=== PATIENT | female | born 1990 | race Caucasian/White ===

== ENCOUNTER 2019-04-03 20:14 | Emergency (ER) | payer MEDICAID ==
[~2019-04-03] VITALS: Ht 157.5 cm; Wt 125.2 kg
[2019-04-03 20:17] VITALS: BP 138/91
--- NOTE | 2019-04-03 20:26 | NUR ---
PT AMBULATED TO BED #2
--- NOTE | 2019-04-03 20:30 | NUR ---
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 PT AAOX4. PT NOTED WITH NON PRODUCTIVE COUGH. LUNG SOUNDS CLEAR A/P BILAT. RESPIRATIONS ARE EVEN AND UNLABORED. O2SAT @ 98% ON RA. PT STATES NECK PAIN IS PREVOKED MORE BY COUGHING AND SWALLOWING. AFEBRILE. DENIES N/V/D. PT LEADERSHIP DEVELOPMENT INSTRUCTOR AT BEDSIDE. PT RESTING IN BED EYES OPEN. BED LOCKED AND IN LOWEST POSITION. MED HX: ASTHMA ALLERGIES: NONE.
--- NOTE | 2019-04-03 20:58 | NUR ---
PT KNOCK OUT HAND CHAUNCEY PECK LEFT CONTACT INFORMATION AND STTED TO CALL HER TO COUNT TEAM MEMBER THE PT UPON DISCHARGE. CONTACT INFORMATION: [phone].
--- NOTE | 2019-04-03 21:30 | NUR ---
PT HAS C/O [address] PIPER MADE AWARE AND GAVE NEW ORDERS TO GIVE MOTRIN AND LIDOCANE FOR THROAT PAIN.
[2019-04-03] MEDS ORDERED: LIDOCAINE VISCOUS 2% 20 ML UDC PO ONE (21:35)
[2019-04-03] MEDS ORDERED: IBUPROFEN 600 MG TAB PO ONE (21:35)
--- NOTE | 2019-04-03 22:03 | NUR ---
PT RESTING IN BEDEYES OPEN, RESPIRATIONS ARE EVEN AND UNLABORED. SKIN IS WARM AND DRY TO TOUCH. PT AAO X 4. BED LOCKED AND IN LOWEST POSITION. WILL CONTINUE TO MONITOR.
[2019-04-03 22:15] VITALS: BP 128/89
--- NOTE | 2019-04-03 22:15 | NUR ---
Patient discharged with v/s stable. Written and verbal after care instructions given and explained. Patient alert, oriented and verbalized understanding of instructions. Ambulatory with steady gait. All questions addressed prior to discharge. ID band removed. Patient advised to follow up with PMD. Rx of IBUPROFEN, CEPACOL given. Patient educated on indication of medication including possible reaction and side effects. Opportunity to ask questions provided and answered.
== END 2019-04-03 22:15 | disposition home or self-care (01) ==
LOC: MED 20:14
DX: J02.9 Acute pharyngitis, unspecified (principal); J45.909 Unspecified asthma, uncomplicated
CPT/HCPCS: 99283

== ENCOUNTER 2019-07-13 09:24 | Emergency (ER) | payer MEDICAID ==
[~2019-07-13] VITALS: Ht 157.5 cm; Wt 113.4 kg
[2019-07-13 09:34] VITALS: BP 139/79
--- NOTE | 2019-07-13 09:50 | NUR ---
Dr. Perez is evaluating the patient at bedside.
--- NOTE | 2019-07-13 09:54 | NUR ---
28 YO FEMALE CO FEET SWELLING AND PAIN X1W. PT HAS SWELLING AND PAIN AT THE HIP. NO WARMTH NOTED ON BLE. PT IS ABLE TO WALK WITH A STEADY GAIT. PT HAS MED HX OF ASTHMA AND SCHITZO. PT IS A TOBACCO SMOKER. MEDS: BENZOTROPINE, ZYPREXA, DEPAKOTE, SEROQUEL, RISPERDAL
--- NOTE | 2019-07-13 10:05 | NUR ---
US AT BEDSIDE
[2019-07-13 10:35] LABS: BASOPHILS % (AUTO) 0.5 % (0.0-2.0); EOSINOPHILS # (AUTO) 0.1 K/uL (0-0.4); HEMATOCRIT 36.5 % (36-48); HEMOGLOBIN 12.2 g/dL (12.0-16.0); LYMPHOCYTES # (AUTO) 2.3 K/uL (2.5-16.5); LYMPHOCYTES % (AUTO) 25.4 % (20.5-51.1); MEAN CORPUSCULAR HEMOGLOBIN 30 pg (27-31); MEAN CORPUSCULAR HGB CONC 34 g/dL (33-37); MEAN CORPUSCULAR VOLUME 89.8 fL (80-94); MONOCYTES # (AUTO) 0.8 K/uL (0.8-1.0); NEUTROPHILS # (AUTO) 5.7 K/uL (1.8-7.7); NEUTROPHILS % (AUTO) 64.1 % (42.2-75.2); PLATELET COUNT (AUTO) 244 K/uL (140-450); RED BLOOD CELL COUNT(AUTO) 4.07 MIL/uL (4.20-5.40); RED CELL DISTRIBUTION WIDTH 14.7 % (11.6-13.7); WHITE BLOOD COUNT (AUTO) 8.9 K/uL (4.8-10.8)
[2019-07-13 10:42] LABS: ANION GAP 13.5 (8-16); CARBON DIOXIDE 24.2 mmol/L (21-32); CREATININE 0.8 mg/dL (0.6-1.3); POTASSIUM 3.7 mmol/L (3.5-5.1)
[2019-07-13 11:26] VITALS: BP 139/79
--- NOTE | 2019-07-13 11:26 | NUR ---
Patient discharged with v/s stable. Written and verbal after care instructions given and explained. Patient verbalized understanding. Ambulatory with steady gait. All questions addressed prior to discharge. Advised to follow up with PMD.
== END 2019-07-13 11:26 | disposition home or self-care (01) ==
LOC: MED 09:24
DX: R22.43 Localized swelling, mass and lump, lower limb, bilateral (principal); J45.909 Unspecified asthma, uncomplicated; F20.9 Schizophrenia, unspecified; F17.290 Nicotine dependence, other tobacco product, uncomplicated
CPT/HCPCS: 36415; 80048; 85025; 93970; 99284; Q0092

== ENCOUNTER 2019-12-19 16:58 | Emergency (ER) | payer MEDICAID ==
[~2019-12-19] VITALS: Ht 157.5 cm; Wt 136.8 kg
[2019-12-19 17:01] VITALS: BP 145/92
--- NOTE | 2019-12-19 17:19 | NUR ---
BIB SELF FROM [facility] C/O COUGH X TODAY & LEFT UPPER &LOWER TEETH & GUM PAIN X 2 DAYS.PT AOX4 , AFIBRILE , AMBULATORY WITH STEADY GAIT , TENDER LEFT UPPER CHEEK , SCE , ROUND SOFT ABDOMEN. MED HX: SCHIZOPHRENIA, ASTHMA
--- NOTE | 2019-12-19 17:28 | NUR ---
amari jett at bedside evaluating pt.
[2019-12-19] MEDS ORDERED: KETOROLAC 30 MG/ML VIAL IM ONE (17:35)
[2019-12-19 17:43] VITALS: BP 145/92
--- NOTE | 2019-12-19 17:45 | NUR ---
spoke to board and care lady gave report , pt will be pick by her.
--- NOTE | 2019-12-19 18:10 | NUR ---
Patient discharged with v/s stable. Written and verbal after care instructions given and explained regarding dental pain . Patient alert, oriented and verbalized understanding of instructions. Ambulatory with to [facility]. All questions addressed prior to discharge. ID band removed. Patient advised to follow up with PMD. Rx of augmentin and ibuprofen given. Patient educated on indication of medication including possible reaction and side effects. Opportunity to ask questions provided and answered.Board and care staff chicken picker the patient.
== END 2019-12-19 18:10 | disposition home or self-care (01) ==
LOC: MED 16:58
DX: K08.89 Other specified disorders of teeth and supporting structures (principal); K02.9 Dental caries, unspecified; F20.9 Schizophrenia, unspecified; J45.909 Unspecified asthma, uncomplicated
CPT/HCPCS: 96372; 99283; J1885

== ENCOUNTER 2019-12-31 12:48 | Emergency (ER) | payer MEDICAID ==
[~2019-12-31] VITALS: Ht 157.5 cm; Wt 132.4 kg
[2019-12-31 12:53] VITALS: BP 124/93
[2019-12-31] MEDS: KETOROLAC 60 MG/2 ML VIAL IM ONE (13:28)
[2019-12-31] MEDS ORDERED: KETOROLAC 30 MG/ML VIAL IVP ONE (14:40)
[2019-12-31] MEDS: NACL 0.9% 1,000 ML IV ONE (14:55)
[2019-12-31] MEDS: MORPHINE SULFATE 4 MG/ML SYR IVP ONE (14:59)
[2019-12-31 15:04] LABS: BASOPHILS # (AUTO) 0.1 K/uL (0.00-0.22); BASOPHILS % (AUTO) 0.6 % (0.0-2.0); EOSINOPHILS # (AUTO) 0.1 K/uL (0-0.4); EOSINOPHILS % (AUTO) 0.6 % (0.0-4.0); HEMATOCRIT 40.3 % (36-48); HEMOGLOBIN 13.4 g/dL (12.0-16.0); LYMPHOCYTES # (AUTO) 3.4 K/uL (2.5-16.5); LYMPHOCYTES % (AUTO) 32.1 % (20.5-51.1); MEAN CORPUSCULAR HEMOGLOBIN 30 pg (27-31); MEAN CORPUSCULAR HGB CONC 33 g/dL (33-37); MEAN CORPUSCULAR VOLUME 89.2 fL (80-94); MONOCYTES # (AUTO) 1.1 K/uL (0.8-1.0); MONOCYTES % (AUTO) 10.1 % (1.7-9.3); NEUTROPHILS # (AUTO) 6.1 K/uL (1.8-7.7); NEUTROPHILS % (AUTO) 56.6 % (42.2-75.2); PLATELET COUNT (AUTO) 290 K/uL (140-450); RED BLOOD CELL COUNT(AUTO) 4.51 MIL/uL (4.20-5.40); RED CELL DISTRIBUTION WIDTH 14.7 % (11.6-13.7); WHITE BLOOD COUNT (AUTO) 10.7 K/uL (4.8-10.8)
[2019-12-31 15:18] LABS: ALBUMIN 3.3 g/dL (3.4-5.0); ANION GAP 14.7 (8-16); CARBON DIOXIDE 26.2 mmol/L (21-32); CREATININE 0.8 mg/dL (0.6-1.3); POTASSIUM 4.9 mmol/L (3.5-5.1); TOTAL BILIRUBIN 0.2 mg/dL (0.0-1.0)
[2019-12-31 16:20] VITALS: BP 113/78
== END 2019-12-31 16:20 | disposition home or self-care (01) ==
LOC: MED 12:48
DX: K08.89 Other specified disorders of teeth and supporting structures (principal); R22.0 Localized swelling, mass and lump, head; F17.210 Nicotine dependence, cigarettes, uncomplicated; Z98.890 Other specified postprocedural states
CPT/HCPCS: 36415; 70487; 80053; 85025; 96361; 96372; 96374; 99285; J1885; J2270; J7030; Q9967

== ENCOUNTER 2020-08-12 10:10 | Emergency (ER) | payer MEDICAID ==
[~2020-08-12] VITALS: Ht 157.5 cm; Wt 143.8 kg
[2020-08-12 10:30] VITALS: BP 100/63
--- NOTE | 2020-08-12 11:02 | NUR ---
Patient ambulated with steady gait to bed 4.
--- NOTE | 2020-08-12 11:12 | NUR ---
DR DOAN AT BEDSIDE EVALUATING PT
--- NOTE | 2020-08-12 11:21 | NUR ---
29 Y/O FEMALE C/O BILATERAL RASH TO BILATERAL LLE AND AND FOREARMS X1 WEEK. PT STATES SHE IS ITCHY BUT DENIES PAIN. PT STATES "I THINK ITS FROM THE INSECTS" PT REPORTS STAYING AT A SENIOR LIVING. PT DENIES N/V, DENIES FEVER/CHILLS. PT A/O X4 WITH EVEN AND UNLABORED RESPIRATIONS. PMH: SCHIZO AFFECTIVE SCHIZOPHRENIA, HYPOTHYROIDISM, EXTRAPYRAMIDAL AND MOVEMENT DISORDER NKA Addendum: 08/12/20 at 1213 by [email or web address] PT ALSO REPORT ITCHINESS IN HER SCALP.
[2020-08-12] MEDS ORDERED: BENZ1SOL (11:52)
[2020-08-12] MEDS ORDERED: PERM5CRE3 TP (11:52)
--- NOTE | 2020-08-12 12:13 | NUR ---
Patient discharged with v/s stable. Written and verbal after care instructions given and explained. Patient alert, oriented and verbalized understanding of instructions. Ambulatory with steady gait. All questions addressed prior to discharge. ID band removed. Patient advised to follow up with PMD. Rx of BENZYL ALCOHOL AND PERMETHRIN given. Patient educated on indication of medication including possible reaction and side effects. Opportunity to ask questions provided and answered.
[2020-08-12 12:14] VITALS: BP 100/63
== END 2020-08-12 12:13 | disposition home or self-care (01) ==
LOC: MED 10:10
DX: B86 Scabies (principal); B85.0 Pediculosis due to Pediculus humanus capitis; F17.210 Nicotine dependence, cigarettes, uncomplicated; Z79.899 Other long term (current) drug therapy
CPT/HCPCS: 99282; 99283

== ENCOUNTER 2022-01-31 08:40 | Inpatient (IN) | payer MEDICAID ==
[~2022-01-31] VITALS: Ht 157.5 cm; Wt 129.3 kg
[~2022-01-31 08:40] MED LIST: BENZ1SOL; PERM5CRE3 TP
[2022-01-31 08:43] VITALS: BP 133/83
--- NOTE | 2022-01-31 08:51 | NUR ---
Junior jameson in [facility] - 01/31/22 at 0858 by [email or web address] PT AMB TO BED 5
--- NOTE | 2022-01-31 08:58 | NUR ---
PT AMB TO BED 8
--- NOTE | 2022-01-31 09:45 | NUR ---
Obtained Flu and TOMMIE specimens, handed to CPT Jennifer at bedside.
--- NOTE | 2022-01-31 09:49 | NUR ---
X-Ray at bedside.
--- NOTE | 2022-01-31 09:55 | NUR ---
31 y/o female bib from [facility] for difficulty breathing, non-productive cough x 3 days. Patient denies any sick contacts. Medical History: Schizophrenia, Pre-Diabetes, Hypothyroidism NKDA
[2022-01-31] MEDS ORDERED: ALBUTEROL 0.083% 2.5 MG/3 ML NEBU INH ONE (10:10)
--- NOTE | 2022-01-31 10:30 | NUR ---
PRESENTS TO ED FROM [facility] WITH C/O SOB, NON PRODUCTIVE COUGH X3 DAYS. PATIENT DENIES RECENT FEVERS, CP OR SICK CONTACTS.
--- NOTE | 2022-01-31 11:10 | NUR ---
Patient's oxygen is 88% on room air, placed patient on 2LPM of oxygen via nasal cannula. Dr. Adams made aware.
[2022-01-31] MEDS ORDERED: NACL 0.9% 1,000 ML IV ONE (11:20)
[2022-01-31] MEDS ORDERED: OSELTAMIVIR PHOSPHATE 75 MG CAP PO ONE (11:20)
--- NOTE | 2022-01-31 11:25 | NUR ---
Increased oxygen to 4 LPM. Patient's oxygen saturation improved.
--- NOTE | 2022-01-31 12:09 | NUR ---
Spoke to Tosha at [facility] to inform them of patient's admission as patient requested.
[2022-01-31 12:12] LABS: BASOPHILS % (AUTO) 0.2 % (0.0-2.0); EOSINOPHILS % (AUTO) 0.1 % (0.0-4.0); HEMATOCRIT 35.8 % (36-48); LYMPHOCYTES # (AUTO) 2.7 K/uL (2.5-16.5); LYMPHOCYTES % (AUTO) 24.4 % (20.5-51.1); MEAN CORPUSCULAR HEMOGLOBIN 29 pg (27-31); MEAN CORPUSCULAR HGB CONC 34 g/dL (33-37); MEAN CORPUSCULAR VOLUME 86.1 fL (80-94); MONOCYTES # (AUTO) 1.6 K/uL (0.8-1.0); MONOCYTES % (AUTO) 14.1 % (1.7-9.3); NEUTROPHILS # (AUTO) 6.8 K/uL (1.8-7.7); NEUTROPHILS % (AUTO) 61.2 % (42.2-75.2); PLATELET COUNT (AUTO) 295 K/uL (140-450); RED BLOOD CELL COUNT(AUTO) 4.15 MIL/uL (4.20-5.40); RED CELL DISTRIBUTION WIDTH 14.1 % (11.6-13.7); WHITE BLOOD COUNT (AUTO) 11.1 K/uL (4.8-10.8)
[2022-01-31] MEDS ORDERED: COG1 PO (12:19)
[2022-01-31] MEDS ORDERED: OLAN15TA1 PO (12:19)
[2022-01-31] MEDS ORDERED: METF-346 PO (12:19)
[2022-01-31] MEDS ORDERED: VARE1TAB PO (12:19)
[2022-01-31] MEDS ORDERED: DIPH50CA69 PO (12:19)
[2022-01-31] MEDS ORDERED: ATOR10TA51 PO (12:19)
[2022-01-31] MEDS ORDERED: SYN.05 PO (12:19)
[2022-01-31] MEDS ORDERED: QUET200T PO (12:19)
[2022-01-31] MEDS ORDERED: RISP0.5T3 PO (12:19)
[2022-01-31] MEDS ORDERED: DIVA500T37 PO (12:19)
--- NOTE | 2022-01-31 12:20 | NUR ---
med rec done
[2022-01-31 12:55] LABS: ALBUMIN 2.9 g/dL (3.4-5.0); ANION GAP 16.2 (8-16); CARBON DIOXIDE 27.3 mmol/L (21-32); CREATININE 0.8 mg/dL (0.6-1.3); POTASSIUM 3.5 mmol/L (3.5-5.1); TOTAL BILIRUBIN 0.2 mg/dL (0.0-1.0)
--- NOTE | 2022-01-31 12:58 | NUR ---
Patient ambulated to restroom with steady gait.
[2022-01-31] MEDS ORDERED: ACETAMINOPHEN 325 MG TAB PO PRN (14:25)
[2022-01-31] MEDS ORDERED: ONDANSETRON 4 MG/2 ML VIAL IVP PRN (14:25)
[2022-01-31] MEDS ORDERED: ALBUTEROL SULFATE/IPRATROPIU 3 ML SOL IH PRN (14:25)
[2022-01-31] MEDS ORDERED: HYDROcodone/APAP 7.5/325 MG 1 TAB PO PRN (14:25)
--- NOTE | 2022-01-31 14:44 | NUR ---
Patient ambulated to restroom.
[2022-01-31 15:06] LABS: PROTHROMBIN TIME 9.8 secs (10.8-13.4)
[2022-01-31 15:21] LABS: AMYLASE 21 U/L (25-115); HDL CHOLESTEROL 57 mg/dL (40-60); LDL (CALC) 97 mg/dL (60-100); LIPASE 53 U/L (73-393); MAGNESIUM 2.1 mg/dL (1.8-2.4); PHOSPHORUS 3.4 mg/dL (2.5-4.9); THYROID STIMULATING HORMONE 2.95 uIU/mL (0.34-3.74); TRIGLYCERIDES 98 mg/dL (30-150)
--- NOTE | 2022-01-31 15:30 | NUR ---
Lab at bedside.
[2022-01-31] MEDS: NACL 0.9% 1,000 ML IV SCH (16:11)
--- NOTE | 2022-01-31 17:05 | NUR ---
Patient will be admitted to care of Dr. Hollins. Admited to Telemetry. Will go to room 113. Belongings list completed. Report to ANETTE [place].
--- NOTE | 2022-01-31 17:35 | NUR ---
The patient's care was reviewed and supervised by [place] [facility], RN.
[2022-01-31 17:38] VITALS: BP 108/59
--- NOTE | 2022-01-31 19:20 | NUR ---
RECEIVED PT FROM DAY SHIFT ANETTE MCCANN FOR CONTINUITY OF CARE. PT IS RESTING IN BED. PT IS AAOX4 ON RA. PT IS AMBULATORY. GAIT STEADY. PT HAS LEFT AC 20 GAUGE RUNNING NS 50 CC/HR. PLAN OF CARE DISCUSSED. WILL CONTINUE TO MONITOR THE PT.
[2022-01-31 19:47] LABS: APPEARANCE,URINE SL CLOUDY (CLEAR); BILIRUBIN,URINE NEGATIVE (NEGATIVE); BLOOD, URINE NEGATIVE (NEGATIVE); COLOR,URINE YELLOW (YELLOW); LEUKOCYTE ESTERASE ,URINE NEGATIVE (NEGATIVE); NITRITE, URINE NEGATIVE (NEGATIVE); UGLUCOSE NEGATIVE (NEGATIVE)
[2022-01-31 19:57] LABS: BARBITURATE, URINE NEGATIVE ng/ml (NEG <=200); BENZODIAZEPINE, URINE NEGATIVE ng/mL (NEG <=200); CANNABINOID, URINE NEGATIVE ng/mL (NEG <=50); COCAINE, URINE NEGATIVE ng/mL (NEG <=300); OPIATE, URINE NEGATIVE ng/mL (NEG <=2000); PHENCYCLIDINE SCREEN,URINE NEGATIVE ng/mL (NEG <=25)
[2022-01-31 20:00] VITALS: BP_SYST 112; BP_SYST 115; BP_DIAS 62; BP_DIAS 63
[2022-01-31] MEDS: DOCUSATE SODIUM 100 MG GELCAP PO SCH (20:43)
[2022-01-31] MEDS: DIVALPROEX 500 MG TABER PO SCH (20:43)
[2022-01-31] MEDS: BENZTROPINE 1 MG TAB PO SCH (20:43)
[2022-01-31] MEDS: QUEtiapine FUMARATE 100 MG TAB PO SCH (20:44)
[2022-01-31] MEDS: OLANZapine 5 MG TAB PO SCH (20:44)
[2022-01-31] MEDS: OSELTAMIVIR PHOSPHATE 75 MG CAP PO SCH (20:44)
--- NOTE | 2022-01-31 20:49 | NUR ---
SCHEDULE MEDICATIONS GIVEN. NO ADVERSE REACTION NOTED. WILL CONTINUE TO MONITOR THE PT.
[2022-01-31] MEDS ORDERED: VARENICLINE TARTRATE 1 MG PO SCH (21:00)
--- NOTE | 2022-01-31 23:25 | NUR ---
PT IV BECAME INFILTRATED ON LEFT AC. NEW IV STARTED ON RIGHT HAND 22 GAUGE. NO OTHER COMPLAINS FROM THE PT. WILL CONTINUE TO MONITOR THE PT.
[2022-02-01] VITALS: BP 115/62
[2022-02-01 04:00] VITALS: BP 120/73
--- NOTE | 2022-02-01 04:06 | NUR ---
PT OBSERVED. PT IS SLEEPING COMFORTABLY IN BED. PT NOT IN ANY ACUTE DISTRESS. VITAL SIGNS STABLE.
--- NOTE | 2022-02-01 05:30 | NUR ---
PT WAS ASSISTED TO THE RESTROOM. GAIT STEADY. NO OTHER COMPLAINS. WILL CONTINUE TO MONITOR THE PT.
--- NOTE | 2022-02-01 07:26 | NUR ---
ENDORSED PT TO DAY SHIFT RN FOR CONTINUITY OF CARE. PT IS STABLE.
[2022-02-01 07:59] LABS: HEMATOCRIT 32.4 % (36-48); HEMOGLOBIN 10.8 g/dL (12.0-16.0); MEAN CORPUSCULAR HEMOGLOBIN 29 pg (27-31); MEAN CORPUSCULAR HGB CONC 34 g/dL (33-37); MEAN CORPUSCULAR VOLUME 86.8 fL (80-94); PLATELET COUNT (AUTO) 271 K/uL (140-450); RED BLOOD CELL COUNT(AUTO) 3.73 MIL/uL (4.20-5.40); RED CELL DISTRIBUTION WIDTH 14.4 % (11.6-13.7); WHITE BLOOD COUNT (AUTO) 9.2 K/uL (4.8-10.8)
[2022-02-01 08:00] VITALS: BP 103/73
[2022-02-01] MEDS: metFORMIN 500 MG TAB PO SCH ×2 (08:35→17:47)
[2022-02-01 08:44] LABS: CARBON DIOXIDE 29.9 mmol/L (21-32); CREATININE 0.6 mg/dL (0.6-1.3); POTASSIUM 3.9 mmol/L (3.5-5.1)
[2022-02-01] MEDS ORDERED: NON-FORMULARY ITEM (Atorvastatin Calcium 1 TAB) PO SCH (09:00)
[2022-02-01 09:03] LABS: EOSINOPHILS % (MANUAL) 1 % (0-4); LYMPHOCYTES % (MANUAL) 24 % (20-46); METAMYELOCYTES % 1 % (0-0); MONOCYTES % (MANUAL) 15 % (5-12); MYELOCYTES % 2 % (0-0)
[2022-02-01] MEDS: PANTOPRAZOLE 40 MG INJ VIAL IVP SCH (09:20)
[2022-02-01] MEDS: OLANZapine 5 MG TAB PO SCH ×2 (09:20→21:26)
[2022-02-01] MEDS: risperiDONE 1 MG TAB PO SCH (09:21)
[2022-02-01] MEDS: DIVALPROEX 500 MG TABER PO SCH ×2 (09:21→20:19)
[2022-02-01] MEDS: DOCUSATE SODIUM 100 MG GELCAP PO SCH ×2 (09:21→20:19)
[2022-02-01] MEDS: ATORVASTATIN 20 MG TAB PO SCH (09:22)
[2022-02-01] MEDS: OSELTAMIVIR PHOSPHATE 75 MG CAP PO SCH ×2 (09:22→20:19)
[2022-02-01] MEDS: BENZTROPINE 1 MG TAB PO SCH ×2 (09:22→20:18)
[2022-02-01] MEDS: LEVOTHYROXINE 0.05 MG TAB PO SCH (09:26)
[2022-02-01 09:54] LABS: MAGNESIUM 2.4 mg/dL (1.8-2.4); PHOSPHORUS 3.4 mg/dL (2.5-4.9)
--- NOTE | 2022-02-01 11:40 | NUR ---
PT WAS TITRATED FROM 02 4L NC TO 2L NC. SPO2 ON 2L NC IS 93%. PT IS STABLE AND NO SIGNS OF DISTRESS. WILL CONTINUE TO MONITOR.
[2022-02-01 12:00] VITALS: BP 107/64
--- NOTE | 2022-02-01 13:00 | NUR ---
DC PLANNING SW MET WITH PT AT BEDSIDE TO COMPLETE ASSESSMENT. PT REPORTS RESIDING AT [facility] FOR THE LAST FIVE YEARS. PT IDENTIFIED XIAO RUELAS, [facility] ADMIN, EMERGENCY CONTACT AND DECLINED TO ADD AN ADDITIONAL EMERGENCY CONTACT. PT DENIED HAVING AD IN PLACE AND DECLINED AD OFFERED BY SW. PT REPORTS LAST VISIT WITH PCP 1 MONTH AGO. PT REPORTS MEETING WITH PCP REGULARLY. PT REPORTS MEDICATION COMPLIANCE AND DENIES BARRIERS IN ACCESS TO NEEDED MEDICATIONS. PT STRUGGLED TO RECALL WHERE MEDICATION IS TYPICALLY PICKED UP. PT REPORTS BEING INDEPENDENT IN ALL ACTIVITIES AND DENIED USE OF DME. PT DENIES MH/DIEHL HX. PT DENIES HX OF DIABETES, HH, SNF PLACEMENT, DIALYSIS [place]. PT REPORTS DC PLAN IS TO RETURN HOME WHEN MEDICALLY STABLE. SW INQUIRED ON RESOURCES NEEDED, PT DECLINED AT THIS TIME Addendum: 02/02/22 at 0846 by Brenna HANCOCK Amended: Links added.
--- NOTE | 2022-02-01 13:35 | NUR ---
CHECKED ON PT SHE IS ASLEEP AND SATING IN THE 90S ON 2L NC STILL. NO DISTRESS NOTED.
--- NOTE | 2022-02-01 15:13 | NUR ---
PATIENT HAS BEEN SCREENED AND CATEGORIZED MODERATE NUTRITION RISK. PATIENT WILL BE SEEN WITHIN 3-5 DAYS OF ADMISSION. 02/04/[address]
[2022-02-01 16:00] VITALS: BP 117/62
[2022-02-01] MEDS: NACL 0.9% 1,000 ML IV SCH ×2 (16:00→23:00)
--- NOTE | 2022-02-01 17:45 | NUR ---
WENT TO CHECK ON PT SHE WAS CURRENTLY IN THE RESTROOM. WILL GIVE REPORT FOR EHS MANAGER TO CHECK IN ON HER.
--- NOTE | 2022-02-01 19:20 | NUR ---
RECEIVED PT RESTING ON BED , NO S/SX OF ACUTE DISTRESS NOTED , W/ IVF NSS X50CC/HR AT 250CC LEVEL . BREATH SOUNDS AUSCULTATE CLEAR SOUND , BUT SOME DIMISHED AT L LOWER LOBE , 0 2SAT 94 % , ON O2 OXYGENATION , ON TELE MONITOR - SR , DENIES SOB AT THIS TIME .CALL LIGHT WITHIN REACH .
--- NOTE | 2022-02-01 19:40 | NUR ---
FOUND PATIENT ON 2L NC. PATIENT SPO2 SATING AT 95%. BREATH SOUNDS UPON AUSCULATATION WERE FINE INSPIRATORY CRACKLES. PATIENT HAD BILATERAL CHEST RISE. NO SOB NOTED. STRONG COUGH. NO RESPIRATORY DISTRESS NOTED.
[2022-02-01 20:00] VITALS: BP 118/60
[2022-02-01] MEDS: QUEtiapine FUMARATE 100 MG TAB PO SCH (20:19)
--- NOTE | 2022-02-01 20:20 | NUR ---
PER STRIP CLEANER - WE DON'T HAVE TAMIFLU ANY MORE - WILL INFORM MD , WILL ENDORSE .
[2022-02-02] VITALS: BP 121/63
--- NOTE | 2022-02-02 | NUR ---
ROUNDS , NO S/X OF ACUTE DISTRESS NOTED , WILL CONT. TO MONITOR , CALL LIGHT WITHIN REACH .
[2022-02-02 04:00] VITALS: BP 116/62
--- NOTE | 2022-02-02 04:00 | NUR ---
ROUNDS , NO S/SX OF ACUTE DISTRESS NOTED , CALL LIGHT WITHIN REACH .
--- NOTE | 2022-02-02 06:00 | NUR ---
AWAKE , NO COMPLAIN MADE , CALL LIGHT WITHIN REACH .
[2022-02-02] MEDS: LEVOTHYROXINE 0.05 MG TAB PO SCH (06:42)
[2022-02-02 07:16] LABS: BASOPHILS % (AUTO) 0.2 % (0.0-2.0); EOSINOPHILS # (AUTO) 0.1 K/uL (0-0.4); EOSINOPHILS % (AUTO) 0.7 % (0.0-4.0); HEMATOCRIT 33.4 % (36-48); HEMOGLOBIN 10.9 g/dL (12.0-16.0); LYMPHOCYTES # (AUTO) 2.9 K/uL (2.5-16.5); LYMPHOCYTES % (AUTO) 26.4 % (20.5-51.1); MEAN CORPUSCULAR HEMOGLOBIN 29 pg (27-31); MEAN CORPUSCULAR HGB CONC 33 g/dL (33-37); MEAN CORPUSCULAR VOLUME 87.4 fL (80-94); MONOCYTES # (AUTO) 1.2 K/uL (0.8-1.0); MONOCYTES % (AUTO) 11.1 % (1.7-9.3); NEUTROPHILS # (AUTO) 6.7 K/uL (1.8-7.7); NEUTROPHILS % (AUTO) 61.6 % (42.2-75.2); PLATELET COUNT (AUTO) 281 K/uL (140-450); RED BLOOD CELL COUNT(AUTO) 3.82 MIL/uL (4.20-5.40); RED CELL DISTRIBUTION WIDTH 14.6 % (11.6-13.7); WHITE BLOOD COUNT (AUTO) 10.9 K/uL (4.8-10.8)
--- NOTE | 2022-02-02 07:36 | NUR ---
ENDORSED PT FOR CONT. OF CARE
[2022-02-02 07:56] LABS: ANION GAP 11.2 (8-16); CARBON DIOXIDE 29.8 mmol/L (21-32); CREATININE 0.6 mg/dL (0.6-1.3)
[2022-02-02] MEDS: ALBUTEROL SULFATE/IPRATROPIU 3 ML SOL IH SCH ×2 (07:59→19:33)
[2022-02-02 08:00] VITALS: BP 119/77
[2022-02-02] MEDS: metFORMIN 500 MG TAB PO SCH ×2 (08:00→17:21)
[2022-02-02 08:02] LABS: MAGNESIUM 2.1 mg/dL (1.8-2.4); PHOSPHORUS 3.5 mg/dL (2.5-4.9)
[2022-02-02] MEDS: PANTOPRAZOLE 40 MG INJ VIAL IVP SCH (09:12)
[2022-02-02] MEDS: DIVALPROEX 500 MG TABER PO SCH ×2 (09:13→21:13)
[2022-02-02] MEDS: BENZTROPINE 1 MG TAB PO SCH ×2 (09:13→21:13)
[2022-02-02] MEDS: risperiDONE 1 MG TAB PO SCH (09:13)
[2022-02-02] MEDS: OSELTAMIVIR PHOSPHATE 75 MG CAP PO SCH ×2 (09:13→21:14)
[2022-02-02] MEDS: ATORVASTATIN 20 MG TAB PO SCH (09:13)
[2022-02-02] MEDS: DOCUSATE SODIUM 100 MG GELCAP PO SCH ×2 (09:13→21:13)
[2022-02-02] MEDS: ENOXAPARIN 40 MG/0.4 ML SYR SUBQ SCH (09:14)
[2022-02-02] MEDS: OLANZapine 5 MG TAB PO SCH ×2 (09:14→21:14)
[2022-02-02] MEDS ORDERED: TAM75 PO ×2 (11:31→13:21)
[2022-02-02] MEDS ORDERED: ALBU0.0912 IH ×2 (11:31→13:21)
[2022-02-02] MEDS ORDERED: ROB PO ×2 (11:33→13:21)
[2022-02-02 12:00] VITALS: BP 112/63
--- NOTE | 2022-02-02 13:00 | NUR ---
CHAUNCEY FROM ACCEPTING FACILITY CALLED MULTIPLE TIME ENDORSING PT CAN NOT RETURN ON OXYGEN OR HHN INFORMED CHAUNCEY THAT THRESHING MACHINE OPERATOR WILL BE MADE AWARE CHAUNCEY CALLED BACK TO STATE PT COULD NOT COME ON OXYGEN MADE CHAUNCEY AWARE THAT MESSAGE WAS VERY CLEAR AND UNDERSTOOD AND WOULD MAKE THRESHING MACHINE OPERATOR AWARE, THRESHING MACHINE OPERATOR MADE AWARE OF MULTIPE CALLS FROM CHAUNCEY AND MADE AWARE PT COULD NOT RETURN ON HAND HELD NEBULIZERS OR OXYGEN, CM VERBALIZED UNDERSTANDING
--- NOTE | 2022-02-02 14:10 | NUR ---
PT FOR DISCHARGE TODAY SPOKE WITH RT AND MADE AWARE TO PERFORM AN OXYWALK ON ROOM AIR WILL FOLLOW UP WITH RESULTS AND MAKE CM AWARE FOR DISCHARGE
--- NOTE | 2022-02-02 14:25 | NUR ---
RECEIVED ANOTHER CALL FROM CHAUNCEY JACK PT CAN NOT RETURN ON OXYGEN OR HHN CHAUNCEY MADE AWARE THAT NURSING AND CM UNDERSTANDS AND WILL NOT SEND PT ON OXYGEN OR HHN CHAUNCEY MADE AWARE TO FOLLOW UP ALL DISCHARGE CONCERNS WITH CM AND ALL PREVIOUS CALLS AND MESSAGES WERE GIVEN TO CM
--- NOTE | 2022-02-02 15:07 | NUR ---
OXIWALK COMPLETED BY RT PT 88% ON ROOM AIR AND USING ACCESSORY MUSCLES CM MADE AWARE
--- NOTE | 2022-02-02 15:16 | NUR ---
TOOK PT ON OXYGEN WALK. ONLY SATTED 88% ON ROOM, PT STATED SHE WAS SOB. USE OF ACCESSORY MUSCLE NOTED. O2 IS STILL NEEDED
[2022-02-02 16:00] VITALS: BP 111/68
[2022-02-02 20:00] VITALS: BP 130/77
[2022-02-02] MEDS: QUEtiapine FUMARATE 100 MG TAB PO SCH (21:13)
--- NOTE | 2022-02-02 21:22 | NUR ---
SCHEDULE MEDICATIONS GIVEN. NO ADVERSE REACTION NOTED. WILL CONTINUE TO MONITOR THE PT.
[2022-02-02] MEDS ORDERED: guaiFENesin/CODEINE 100/10MG 5 ML UDC PO PRN (23:50)
--- NOTE | 2022-02-03 00:10 | NUR ---
PT COMPLAIN OF COUGH. MESSAGED PACKING MACHINE FEEDER DOCTOR ZEYAD. DOCTOR ORDER ROBITUSSIN SYRUP 5ML. GIVEN TO PT. NO OTHER COMPLAINS.
[2022-02-03] MEDS: NACL 0.9% 1,000 ML IV SCH (02:25)
--- NOTE | 2022-02-03 03:30 | NUR ---
PT OBSERVED. PT IS SLEEPING. PT NOT IN ANY DISTRESS. BREATHING EVEN AND UNLABORED. WILL CONTINUE TO MONITOR THE PT.
[2022-02-03 04:00] VITALS: BP 122/63
--- NOTE | 2022-02-03 04:00 | NUR ---
TRIED TO INSERT NEW IV WITH NO SUCCESS. PT DOES NOT WANT TO BE POKE ANYMORE. WILL ENDORSED TO MORNING NURSE.
[2022-02-03] MEDS: LEVOTHYROXINE 0.05 MG TAB PO SCH (05:56)
[2022-02-03 06:58] LABS: ANION GAP 11.6 (8-16); CARBON DIOXIDE 30.5 mmol/L (21-32); CREATININE 0.6 mg/dL (0.6-1.3); POTASSIUM 4.1 mmol/L (3.5-5.1)
[2022-02-03 07:09] LABS: BASOPHILS % (AUTO) 0.3 % (0.0-2.0); EOSINOPHILS # (AUTO) 0.1 K/uL (0-0.4); EOSINOPHILS % (AUTO) 0.5 % (0.0-4.0); HEMATOCRIT 33.3 % (36-48); HEMOGLOBIN 10.9 g/dL (12.0-16.0); LYMPHOCYTES # (AUTO) 3.8 K/uL (2.5-16.5); LYMPHOCYTES % (AUTO) 25.8 % (20.5-51.1); MEAN CORPUSCULAR HEMOGLOBIN 29 pg (27-31); MEAN CORPUSCULAR HGB CONC 33 g/dL (33-37); MEAN CORPUSCULAR VOLUME 87.4 fL (80-94); MONOCYTES # (AUTO) 1.5 K/uL (0.8-1.0); MONOCYTES % (AUTO) 10.4 % (1.7-9.3); NEUTROPHILS # (AUTO) 9.2 K/uL (1.8-7.7); PLATELET COUNT (AUTO) 325 K/uL (140-450); RED BLOOD CELL COUNT(AUTO) 3.81 MIL/uL (4.20-5.40); RED CELL DISTRIBUTION WIDTH 14.4 % (11.6-13.7); WHITE BLOOD COUNT (AUTO) 14.6 K/uL (4.8-10.8)
[2022-02-03 07:12] LABS: MAGNESIUM 1.9 mg/dL (1.8-2.4); PHOSPHORUS 4.1 mg/dL (2.5-4.9)
--- NOTE | 2022-02-03 07:24 | NUR ---
ENDORSED PT TO DAY SHIFT RN FOR CONTINUITY OF CARE. PT IS STABLE.
[2022-02-03 08:00] VITALS: BP 125/75
--- NOTE | 2022-02-03 08:00 | NUR ---
RECIEVED REPORT FROM TRANSPORTATION SALES CONSULTANT NURSE KOBY FOR CONTINUITY OF CARE. NO SIGNS OF DISTRESSED OR LABORED BREATHING. PT IS A&OX4, SKIN INTACT, NO IV ASSESS, AMBULATORY AND IS ON 2L NC. PT COMPLAINS OF NO PAIN AT THIS TIME. CALL LIGHT WITHIN REACH, TWO SIDE RAILS UP, BED IN LOW POSITION AND ALL SAFETY MEASURES MEET AT THIS TIME. WILL CONTINUE TO MONITOR.
[2022-02-03] MEDS: OLANZapine 5 MG TAB PO SCH (08:59)
[2022-02-03] MEDS: BENZTROPINE 1 MG TAB PO SCH (08:59)
[2022-02-03] MEDS: metFORMIN 500 MG TAB PO SCH (08:59)
[2022-02-03] MEDS: OSELTAMIVIR PHOSPHATE 75 MG CAP PO SCH (08:59)
[2022-02-03] MEDS: DIVALPROEX 500 MG TABER PO SCH (08:59)
[2022-02-03] MEDS: ATORVASTATIN 20 MG TAB PO SCH (09:00)
[2022-02-03] MEDS: DOCUSATE SODIUM 100 MG GELCAP PO SCH (09:00)
[2022-02-03] MEDS ORDERED: PANTOPRAZOLE 40 MG TABEC PO SCH (09:00)
[2022-02-03] MEDS: risperiDONE 1 MG TAB PO SCH (09:00)
[2022-02-03] MEDS: ENOXAPARIN 40 MG/0.4 ML SYR SUBQ SCH (09:02)
--- NOTE | 2022-02-03 09:53 | NUR ---
DC ORDER IN PLACE, PATIENT FROM [facility]. CURRENTLY ON O2, RN SPOKE WITH RT WHO WILL SEE IF PATIENT CAN TOLERATE BEING OFF OF O2. RN WILL ARRANGE TRANSPORT IF NEEDED TO RETURN TO FACILITY IF PATIENT IS OFF OF O2.
--- NOTE | 2022-02-03 10:04 | NUR ---
P.T. NOTES P.T. EVAL COMPLETED; REFER TO EVAL FOR DETAILS.
--- NOTE | 2022-02-03 10:15 | NUR ---
PT WAS PUT ON RA AND IS TOLERATING WELL. PT SPO2 ON RA IS 93%. RT STUDENT AT BEDSIDE TO ASSESS PT HAS NO DISTRESS. WILL CONTINUE TO MONITOR.
== END 2022-02-03 14:47 | disposition home or self-care (01) | DRG 139 ==
LOC: MED 08:40 → MTU 14:24
DX: J10.00 Influenza due to other identified influenza virus with unspecified type of pneumonia (principal); J96.01 Acute respiratory failure with hypoxia; E44.0 Moderate protein-calorie malnutrition; Z68.43 Body mass index [BMI] 50.0-59.9, adult; R74.01 Elevation of levels of liver transaminase levels; Z20.822 Contact with and (suspected) exposure to COVID-19; E11.9 Type 2 diabetes mellitus without complications; F20.9 Schizophrenia, unspecified; E03.9 Hypothyroidism, unspecified; E66.01 Morbid (severe) obesity due to excess calories; J98.11 Atelectasis
CPT/HCPCS: 36415; 71045; 80048; 80053; 80305; 81003; 82150; 83036; 83605; 83690; 83735; 83880; 84100; 84439; 84443; 84484; 85025; 85610; 85730; 87040; 87081; 87086; 94640; 96360; 97163-GP; 99285; C9113; J1650; J7030; J7613; Q0092

== ENCOUNTER 2023-08-22 20:36 | Emergency (ER) | payer MEDICAID, OTHER ==
[~2023-08-22] VITALS: Ht 157.5 cm; Wt 124.7 kg
[~2023-08-22 20:36] MED LIST changes: +ALBU0.0912 IH; +ATOR10TA51 PO; -BENZ1SOL; +BENZ1TAB24 PO; +DIVA500T37 PO; +METF-346 PO; +OLAN15TA1 PO; -PERM5CRE3 TP; +QUET200T PO; +RISP0.5T3 PO; +ROB PO; +SYN.05 PO; +TAM75 PO; +VARE1TAB PO
[2023-08-22 20:45] VITALS: BP 126/92; PULSE 99; RESP 16; TEMP 98.1; O2SAT 99
[2023-08-22 21:12] VITALS: BP 122/76; PULSE 88; RESP 18; TEMP 98.2; O2SAT 98
[2023-08-22] MEDS ORDERED: DOXY-690 PO (21:58)
== END 2023-08-22 22:27 | disposition home or self-care (01) ==
LOC: MED 20:36
DX: L02.412 Cutaneous abscess of left axilla (principal); L03.112 Cellulitis of left axilla; E11.9 Type 2 diabetes mellitus without complications; E03.9 Hypothyroidism, unspecified; Z79.84 Long term (current) use of oral hypoglycemic drugs; Z79.899 Other long term (current) drug therapy
CPT/HCPCS: 99284

== ENCOUNTER 2023-10-09 12:46 | Emergency (ER) | payer OTHER ==
[~2023-10-09] VITALS: Ht 157.5 cm; Wt 124.3 kg
[~2023-10-09 12:46] MED LIST changes: +DOXY-690 PO
[2023-10-09 12:51] VITALS: BP 126/79; PULSE 104; RESP 19; TEMP 97.7; O2SAT 95
[2023-10-09] MEDS: IBUPROFEN 600 MG TAB PO ONE (16:30)
[2023-10-09] MEDS ORDERED: NAPR-1703 PO (17:46)
== END 2023-10-09 17:52 | disposition home or self-care (01) ==
LOC: MED 12:46
DX: S90.31XA Contusion of right foot, initial encounter (principal); E11.9 Type 2 diabetes mellitus without complications; E03.9 Hypothyroidism, unspecified; Z79.899 Other long term (current) drug therapy; W18.39XA Other fall on same level, initial encounter; Y92.89 Other specified places as the place of occurrence of the external cause; Y93.89 Activity, other specified; Y99.8 Other external cause status
CPT/HCPCS: 73630; 99283